=== PATIENT | male | born 1950 | race Caucasian/White ===

== ENCOUNTER → 2016-07-16 | Outpatient (CLI) | payer BC ==
--- NOTE | ~2016-07-16 | US136 ---
[facility] A Service of [facility] & [facility] RADIOLOGY TEXT RESULTS PATIENT: KIRAN JAUREGUI LOCATION: CNIV : 52 UNIT #: [id number] AGE: [address]: Humberto Limon MD SEX: M ORDER DR: [id number] [facility] [address] [place], [place] [address] [id number] O MR#: [id number] Acc #: [id number] NAME: KIRAN JAUREGUI : 1950 SEX: M STUDY DATE/TIME: 07/16/2016 15:37 UNIT: CNIV ROOM: STUDY DESCRIPTION: US U/L Ext Art Study Ltd Bil Attending Physician: Humberto Limon M.D. Referring Physician: Humberto Limon M.D. Ordering Physician: Humberto Limon M.D. Primary Care Physician: Humberto Limon M.D. MEDICAL IMAGING REPORT This report is preliminary unless electronic signature is present EXAM Bilateral ankle-brachial indices HISTORY Lower extremity claudication for 2 months. Hyperlipidemia. Evaluate for peripheral vascular disease. Right lower extremity rest pain. FINDINGS Peak brachial pressures are 172 on the right and 165 on the left. At the right ankle, peak pressures are 175 dorsalis pedis and 197 posterior tibial, for an ankle-brachial index of 1.02 at the dorsalis pedis and 1.15 at the posterior tibial. The right great toe pressure is 158 for a toe-brachial index of 0.92. At the left ankle, peak pressures are 205 posterior tibial and 201 dorsalis pedis, for an ankle-brachial index of 1.19 and a toe-brachial index of 1.17. The left great toe pressure is 158 for a toe-brachial index of 0.92. Pulse volume recordings at the ankles are unremarkable bilaterally. IMPRESSION Normal examination. Normal ankle-brachial indices measuring 1.15 on the right and 1.19 on the left. Dictated by... Aravind Pope M.D. THIS IS AN ELECTRONICALLY VERIFIED REPORT Aravind Pope M.D. at 07/17/2016 10:40 PM DFL/psc [facility]. [facility] A Service of [facility] & [facility] RADIOLOGY TEXT RESULTS PATIENT: KIRAN JAUREGUI LOCATION: CN : 51 UNIT #: [id number] AGE: [address]: Humberto Limon MD SEX: M ORDER DR: TD: 07/17/2016 00:16 JOB #: [id number] MEDICAL IMAGING REPORT Page 1 of 1 COPY
== END | disposition home or self-care (01) ==
LOC: CNIV 15:26
DX: M25.551 Pain in right hip (principal); I73.9 Peripheral vascular disease, unspecified; E78.5 Hyperlipidemia, unspecified; E66.9 Obesity, unspecified
CPT/HCPCS: 93922